=== PATIENT | female | born 1985 ===

== ENCOUNTER 2022-05-04 09:45 | Inpatient (IN) | payer OTHER ==
[~2022-05-04] VITALS: Ht 167.6 cm; Wt 57.4 kg
[2022-05-04] MEDS ORDERED: TOPI100 PO (10:00)
[2022-05-04] MEDS ORDERED: LACO50TA2 PO (10:00)
[2022-05-04 11:45] LABS: BASOPHILS ABSOLUTE AUTO 0.03 K/mm3 (0.00-0.23); BASOPHILS PERCENT AUTO 1 % (0-2); EOSINOPHILS ABSOLUTE AUTO 0.06 K/mm3 (0.00-0.68); EOSINOPHILS PERCENT AUTO 2 % (0-6); Hematocrit 36.5 % (33.0-51.0); Hemoglobin 12.1 g/dL (11.5-16.0); IMMATURE GRAN ABSOLUTE AUTO 0.01 K/mm3 (0.00-0.10); IMMATURE GRAN PERCENT AUTO 0 % (0-1); LYMPHOCYTES ABSOLUTE AUTO 0.51 K/mm3 (0.84-5.20); LYMPHOCYTES PERCENT AUTO 16 % (21-46); MONOCYTES ABSOLUTE AUTO 0.25 K/mm3 (0.16-1.47); MONOCYTES PERCENT AUTO 8 % (4-13); Mean Corpuscular HGB 32.7 pg (26.0-34.0); Mean Corpuscular HGB Conc 33.2 g/dL (31.5-36.5); Mean Corpuscular Volume 99 fL (80-100); Mean Platelet Volume 10.3 fL (9.1-12.4); NEUTROPHILS ABSOLUTE AUTO 2.29 K/mm3 (1.96-9.15); NEUTROPHILS PERCENT AUTO 73 % (41-73); Platelet Count 164 K/mm3 (150-400); RDW Coefficient Variation 14.1 % (11.7-14.2); RDW Standard Deviation 51.5 fL (35.1-46.3); White Blood Cell Count 3.15 K/mm3 (4.00-11.30)
[2022-05-04 12:05] LABS: Magnesium, Blood 2.1 mg/dL (1.6-2.4)
[2022-05-04 12:09] LABS: Alanine Aminotransfer (ALT/SGP 128 U/L (12-78); Albumin, Blood 4.2 g/dL (3.4-5.0); Albumin/Globulin Ratio 1.4 (0.8-1.8); Alk Phos 69 U/L (50-136); Anion Gap 6 mmol/L (6-16); Aspartate Aminotrans (AST/SGOT 126 U/L (12-37); Bilirubin, Total 1.2 mg/dL (0.1-1.0); Blood Urea Nitrogen 11 mg/dL (8-24); Bun/Creatinine Ratio 19.1 (12.0-20.0); CO2, Blood 21 mmol/L (21-32); Calcium, Blood 9.2 mg/dL (8.5-10.1); Chloride, Blood 115 mmol/L (98-108); Creatinine, Blood 0.58 mg/dL (0.40-1.00); Ethanol (Alcohol), Blood, Med <3 mg/dL; Glomerular Filtration Rate 121 (60-); Glucose, Blood 89 mg/dL (70-99); Potassium, Blood 3.7 mmol/L (3.5-5.5); Sodium, Blood 142 mmol/L (136-145); Total Protein, Blood 7.2 g/dL (6.4-8.2)
[2022-05-04 13:51] LABS: U Benzodiazapine Screen DETECTED; U Cannabinoids Screen DETECTED
[2022-05-04 13:52] LABS: U Amphetamine Screen Not Detected; U Barbituate Screen Not Detected; U Buprenorphine Screen Not Detected; U Cocaine Screen Not Detected; U Methadone Screen Not Detected; U Methamphetamine Screen Not Detected; U Opiates Screen Not Detected; U Oxycodone Screen Not Detected; U Phencyclidine Screen Not Detected; U Propoxyphene Screen Not Detected
--- NOTE | 2022-05-04 18:43 | NUR ---
SHIFT SUMMARY PT ARRIVED ON THE FLOOR AT 1800. A VERY PLEASANT LADY. AXO 4. SHAKING, HEADACHE, NAUSEA, AND SOME DIZZINESS. MEDICATED PER OCT. SHE IS STANDBY ASSIST TO BATHROOM FOR STABILITY REASONS. CALM AND COOPERATIVE, VERY INTENT ON GETTING TREATMENT AND GETTING BETTER. BED IN LOWEST POSITION AND CALL LIGHT IN REACH.
--- NOTE | 2022-05-04 20:10 | NUR ---
ASSUMED CARE PATIENT ARRIVED TO ICU ALERT AND ORIENTED X 4. 22G TO RT AC PATENT. PG PLACED IN JANES UPON ARRIVAL. NS INF @ 100ML/HR AND KEPPRA STARTED UPON ARRIVAL. VSS STABLE. PATIENT IS ANSWERING QUESTIONS AND FOLLOWING COMMANDS. CIWA ON ARRIVAL WAS 22. LIBRIUM 50MG PO GIVEN WITH NIGHTIME MEDICATIONS. PATIENT C/O HEADACHE AND BODYACHES, MEDICATED WITH TYLENOL 650MG PO AND WARM BLANKETS PROVIDED. REPORT RECEIVED FROM EZEKIEL SUMMERS.
--- NOTE | 2022-05-04 21:15 | NUR ---
SEIZURE PATIENT WAS RESTING IN BED WHEN SHE BEGAN CONVULSING. PATIENT WAS IMMEDIATELY PLACED ON HIGH LT SIDE LYING POSITION AND SUCTIONED. VALIUM 10MG IV ADMINISTERED AND CONVULSING SUBSIDED. PATIENT WAS IN CLONIC STATE FOR APPROXIMATELY 3 MINUTES, ANSWERING QUESTIONS WITH HEAD NODS AND TRYING TO SPEAK. FOLLOWS COMMANDS. VITAL SIGNS STABLE.
--- NOTE | 2022-05-04 22:55 | NUR ---
AFTER HOSPICE PATIENT CARE SECRETARY, PT TOLD ME THAT SHE DRINKS 4L OF WINE DAILY AND THAT SHE WAS DRINKING IN THE BACK SEAT WHILE HER PARENTS WERE DRIVING HER TO [facility]. PT TOLD ME THAT SHE'S BEEN TAKING KEPPRA AND VIMPAT FOR HER SEIZURE DISORDER THAT SHE'S HAD SINCE SHE WAS 30 YRS OLD. SHE STATES THAT [facility] DID NOT GIVE HER HER KEPPRA OR VIMPAT SINCE SHE'S BEEN THERE.
[2022-05-05 04:00] LABS: BASOPHILS ABSOLUTE AUTO 0.04 K/mm3 (0.00-0.23); BASOPHILS PERCENT AUTO 1 % (0-2); EOSINOPHILS ABSOLUTE AUTO 0.11 K/mm3 (0.00-0.68); EOSINOPHILS PERCENT AUTO 3 % (0-6); Hematocrit 32.2 % (33.0-51.0); Hemoglobin 10.7 g/dL (11.5-16.0); IMMATURE GRAN ABSOLUTE AUTO 0.01 K/mm3 (0.00-0.10); IMMATURE GRAN PERCENT AUTO 0 % (0-1); LYMPHOCYTES ABSOLUTE AUTO 0.72 K/mm3 (0.84-5.20); LYMPHOCYTES PERCENT AUTO 21 % (21-46); MONOCYTES ABSOLUTE AUTO 0.31 K/mm3 (0.16-1.47); MONOCYTES PERCENT AUTO 9 % (4-13); Mean Corpuscular HGB 32.9 pg (26.0-34.0); Mean Corpuscular HGB Conc 33.2 g/dL (31.5-36.5); Mean Corpuscular Volume 99 fL (80-100); Mean Platelet Volume 10.3 fL (9.1-12.4); NEUTROPHILS ABSOLUTE AUTO 2.31 K/mm3 (1.96-9.15); NEUTROPHILS PERCENT AUTO 66 % (41-73); Platelet Count 173 K/mm3 (150-400); RDW Coefficient Variation 14.3 % (11.7-14.2); RDW Standard Deviation 52.2 fL (35.1-46.3); Red Blood Cell Count 3.25 M/mm3 (3.80-5.20)
[2022-05-05 04:10] LABS: Bun/Creatinine Ratio 14.6 (12.0-20.0); Calcium, Blood 8.2 mg/dL (8.5-10.1); Creatinine, Blood 0.62 mg/dL (0.40-1.00); Potassium, Blood 3.3 mmol/L (3.5-5.5)
--- NOTE | 2022-05-05 06:28 | NUR ---
SHIFT SUMMARY PATIENT HAD MULTIPLE SEIZURES DURING SHIFT. ATIVAN, VERSED, AND VALIUM GIVEN FOR SEIZURE EPISODES. CALL MADE TO DR. CHAN AND ORDERS RECEIVED FOR DILANTIN-BUT PATIENT STATES ALLERGY TO MEDICATION. ALLERGY ADDED TO CHART AND NEW ORDER FOR ONE TIME DOSE OF PHENOBARBITAL IV GIVEN. PATIENT URINATED ONCE WITH TOTAL OF 1000ML OUT. MORNING LABS SHOWED LOW POTASSIUM OF 3.3. KCL 40MEQ CURRENTLY INF WITH NS @ 100ML/HR. AFTER THIS BAG OF FLUIDS FINISHES THEN NO FURTHER MAINTENANCE FLUIDS ORDERED. PATIENT REQUESTS THIS MORNING THAT MOTHER, SLIME CHEN, AND FATHER, NADINE CHEN, RECEIVE NO INFORMATION AND NO INFORMATION TO BE GIVEN TO [facility]. LIST UPDATED. VSS T/O SHIFT. NO OTHER EVENTS DURING THE NIGHT.
--- NOTE | 2022-05-05 07:43 | NUR ---
ASSUMED CARE: PT HAVING SEIZURE UPON ARRIVAL. NIGHT RN AT BEDSIDE ADMINISTERING ATIVAN AND VALIUM. NIGHT RN STATES THAT PT'S SEIZURE LASTED 3 MINUTES. TREMULOUS THROUGHOUT. NIGHT RN STATES TONIC CLONIC AT THE START OF SEIZURE. PT'S SEIZING SUBSIDED AND ROUGHLY 10 MINUTES LATER PT'S EYES WERE OPEN AND SHE WAS NODDING TO YES/NO QUESTIONS BUT HAD DIFFICULTY SPEAKING. BY 0740 PT IS ABLE TO CARRY CONVERSATION WITH STAFF AND SPEAKING CLEARLY BUT SLOWLY. C/O W/D SYMPTOMS. MEDICATED WITH LIBRIUM, SWALLOWED SAFELY AND WITHOUT DIFFICULTY. CALL LIGHT IN REACH, VSS AT THIS TIME. DENIES FURTHER CONCERNS.
--- NOTE | 2022-05-05 09:11 | NUR ---
PT STATED SHE WAS HAVING SEIZURE AURA, "FEELING FUNKY" WHICH USUALLY HAPPENS 30 MINUTES BEFORE A SEIZURE. CALL TO DR RUTLEDGE WHO CAME TO SEE PT. MEDICATION CHANGES MADE. A FEW MINUTES AFTER LEFT PT STATED SHE FELT LIKE SHE WAS GOING TO HAVE A SEIZURE AND BEGAN SEIZING, FULL BODY SPASMS WITH ARMS CROSSED AT CHEST AND FOAMING AT MOUTH. ATTEMPTED TO SUCTION BUT JAW CLENCHED TIGHT. VALIUM GIVEN FIRST WITH NO RELIEF, SEIZING WORSENED. 2MG ATIVAN GIVEN WITH RELIEF. SEIZURE LASTED 4 MINUTES, 45 SECONDS.
--- NOTE | 2022-05-05 10:43 | NUR ---
NURSING STAFF LOOKED IN ROOM AND NOTICED PT SEIZING. 2MG ATIVAN GIVEN WITH SEIZURE NOT CEASING. MANAGER OF REGULATORY AFFAIRS AT BEDSIDE AND INSTRUCTED FOR 2MG VERSED TO BE GIVEN. CALL TO DR RUTLEDGE WHO STATED HE WOULD REVIEW CHART TO DECIDE IF VERSED WILL BE A PRN ORDER. PT AWAKE, DIFFICULTY SPEAKING BUT RESPONDING TO STAFF WITH NODDING TO YES/NO QUESTIONS.
--- NOTE | 2022-05-05 12:10 | NUR ---
CALL TO DR RUTLEDGE DUE TO PT HAVING 8 MINUTE SEIZURE, REQUIRING 8MG OF ATIVAN TO RELIEVE SYMPTOMS. ADDED VERSED FOR PRN USE WITH SEIZURES. PAPER GLUING OPERATOR AWARE.
--- NOTE | 2022-05-05 13:14 | NUR ---
PT CALLED STAFF TO BEDSIDE STATING SHE FELT LIKE SHE WAS GOING TO HAVE A SEIZURE. SEIZURE STARTED AN HOUR AFTER THE LAST. SEIZURE LASTED FOR 14 MINUTES AND 20 SECONDS WITH 6MG VERSED ADMINISTERED. DR RUTLEDGE WAS CONTACTED AND DISCUSSED POSSIBLILITY OF INCLUDING NEUROLOGY AND PROFESSOR OF PSYCHIATRY. DR RUTLEDGE STATES HE WILL REVIEW HER CASE TO DETERMINE FURTHER ORDERS.
--- NOTE | 2022-05-05 13:30 | NUR ---
DR RUTLEDGE CALLED WITH PLAN TO START PHENOBARBITOL GTT AND PRN ATIVAN FOR SEIZURES. LET DR KNOW THAT PT HAS 9MG PRN ATIVAN LEFT BEFORE MEETING THE [address] STATES OK AND TO GIVE ATIVAN IF NEEDED. JUNIOR PHP DEVELOPER AWARE.
--- NOTE | 2022-05-05 15:29 | NUR ---
CT CALLED TO DISCUSS NEW ORDER. DUE TO PT'S UNPREDICTABLE SEIZURE STATUS, DISCUSSED WITH LICENSED VOCATIONAL NURSE AND DECIDED TO DO CT AFTER NEXT SEIZURE WHILE PT IS IN POSTICTAL STATE. CALL TO CT TO MAKE THEM AWARE AND THEY ARE AGREEABLE TO THIS PLAN. PT'S CIWA IS CURRENTLY 19 AND PT IS MORE CONFUSED THAN SHE HAS BEEN. SHE KEEPS LOOKING AT THIS RN AND SAYING "YOU HAVE BEEN THROUGH HARDER TIMES THAN I HAVE" AND "YOU'VE GONE THROUGH MORE THAN ME AND CAME OUT STRONGER." BED ALARM ON. PHENOBARB GTT RUNNING PER ORDERS
--- NOTE | 2022-05-05 15:51 | NUR ---
DR RUTLEDGE CALLED TO CHECK ON PT. AWARE THAT PHENOBARBITOL GTT IS RUNNING AND PT IS RESTING AT THIS TIME, 2 HOURS OUT FROM LAST SEIZURE. DR AWARE THAT CT IS DELAYED UNTIL NEXT SEIZURE IN ORDER TO HAVE BETTER TIMING AND ACCURACY OF SCAN. VSS AT THIS TIME.
--- NOTE | 2022-05-05 18:19 | NUR ---
SHIFT SUMMARY: PT HAS HAD FREQUENT SEIZURES THIS SHIFT AND MEDICATED HEAVILY FOR THIS. LONGEST SEIZURE WAS 14 MINUTES 20 SECONDS. PT IS ABLE TO PROTECT AIRWAY DURING SEIZURES WITH SATURATIONS IN HIGH 90S. NSR IN 60S ON TELE WITH QT INTERVAL AT 434. CURRENTLY ON PHENOBARBITOL DRIP. LAST SEIZURE WAS AT 1355. CT SCAN COMPLETED. PT ASKING IF SHE CAN EAT BUT DUE TO SOMNOLENCE AND FALLING BACK TO SLEEP FREQUENTLY, SHE IS NPO AT THIS TIME. BED ALARM ON.
[2022-05-06 05:18] LABS: BASOPHILS ABSOLUTE AUTO 0.04 K/mm3 (0.00-0.23); BASOPHILS PERCENT AUTO 1 % (0-2); EOSINOPHILS ABSOLUTE AUTO 0.08 K/mm3 (0.00-0.68); EOSINOPHILS PERCENT AUTO 2 % (0-6); Hematocrit 35.7 % (33.0-51.0); Hemoglobin 12.4 g/dL (11.5-16.0); IMMATURE GRAN ABSOLUTE AUTO 0.01 K/mm3 (0.00-0.10); IMMATURE GRAN PERCENT AUTO 0 % (0-1); LYMPHOCYTES ABSOLUTE AUTO 0.63 K/mm3 (0.84-5.20); LYMPHOCYTES PERCENT AUTO 17 % (21-46); MONOCYTES ABSOLUTE AUTO 0.36 K/mm3 (0.16-1.47); MONOCYTES PERCENT AUTO 10 % (4-13); Mean Corpuscular HGB 33.4 pg (26.0-34.0); Mean Corpuscular HGB Conc 34.7 g/dL (31.5-36.5); Mean Corpuscular Volume 96 fL (80-100); Mean Platelet Volume 10.3 fL (9.1-12.4); NEUTROPHILS ABSOLUTE AUTO 2.63 K/mm3 (1.96-9.15); NEUTROPHILS PERCENT AUTO 70 % (41-73); Platelet Count 216 K/mm3 (150-400); RDW Coefficient Variation 13.8 % (11.7-14.2); RDW Standard Deviation 49.6 fL (35.1-46.3); Red Blood Cell Count 3.71 M/mm3 (3.80-5.20); White Blood Cell Count 3.75 K/mm3 (4.00-11.30)
[2022-05-06 05:26] LABS: Albumin, Blood 4.2 g/dL (3.4-5.0); Albumin/Globulin Ratio 1.2 (0.8-1.8); Bilirubin, Total 0.9 mg/dL (0.1-1.0); Bun/Creatinine Ratio 12.5 (12.0-20.0); Calcium, Blood 9.1 mg/dL (8.5-10.1); Creatinine, Blood 0.56 mg/dL (0.40-1.00); Globulin, Blood 3.4 g/dL (2.2-4.0); Potassium, Blood 3.1 mmol/L (3.5-5.5); Total Protein, Blood 7.6 g/dL (6.4-8.2)
--- NOTE | 2022-05-06 06:51 | NUR ---
PT RESTED QUIETLY THROUGHOUT SHIFT, NO SEIZURE ACTIVITY NOTED THROUGHOUT NOC. CIWA'S RANGE BETWEEN 6 AND 17 THIS SHIFT, WHEN PT AWAKE AND UP AT BEDSIDE, CIWA IS HIGH TEENS, AT REST/SLEEP FOR SCORES LESS THAN 10 AT WHICH TIME PT DENIES N/V, HEADACHE, ANXIETY HOWEVER REMAINS DISORIENTED TO LOCATION. SHE IS INTERMITTENTLY AWARE THAT SHE IS IN A HOSPITAL HOWEVER REMAINS VERBALLY REDIRECTABLE THROUGHOUT NOC. MARKED TREMORS ARE NOTED WITH UP OOB THIS AM, HOWEVER PT DENIES ANXIETY OTHER THAN NEED TO VOID. 1 PERSON ASSIST TO BSC AND TOLERATED WELL. ASSESSMENT OTHERWISE REMAINS UNCHANGED THROUGHOUT NOC.
--- NOTE | 2022-05-06 07:36 | NUR ---
ASSUMED CARE: PT RESTING QUIETLY IN BED AT THIS TIME. SINUS TACH AT 108. 99% ON RA. PHENOBARB GTT PER ORDERS. CIWA SCORE CURRENTLY 6 WHILE PT IS RESTING. BED ALARM ON AT THIS TIME. NO ACUTE NEEDS OR CONCERNS.
--- NOTE | 2022-05-06 08:58 | NUR ---
DR RUTLEDGE CAME TO SEE PT AND INSTRUCTS TO WEAN PHENOBARB GTT DOWN TO NEW RATE. HIS PLAN IS TO GRADUALLY WEAN OFF AND START ORAL MEDICATION WHEN PT IS ABLE TO TAKE IT. IS AWARE PT WAS UNABLE TO TAKE ORAL MEDS THIS AM DUE TO SOMNOLENCE. PHARMACY ASKED ABOUT EEG PLANS WITH PHENOBARB AND STATES CONTINUOUS EEG SO HE IS PLANNING TO WEAN OFF. COMPUTER SYSTEMS SOFTWARE ENGINEER AWARE OF PLANS.
--- NOTE | 2022-05-06 13:30 | NUR ---
STAFF OUTSIDE OF ROOM HEARD A "THUD" AND FOUND PT ON THE FLOOR. BY THE TIME STAFF ENTERED ROOM, BED ALARM WAS ALERTING. LIFT SHEET WAS PLACED UNDER PT. SHE WAS VERY SOMNOLENT WITH CHORDS WRAPPED AROUND HER BODY IF SHE HAD ROLLED OVER THE SIDERAIL AND SEIZURE PAD ON THE BED. PT LIFTED BACK TO BED, VSS. PT SOMNOLENT AND WHEN HAND WAS DROPPED OVER HER FACE IT HIT HER AND THEN SHE FLINCHED. SHE WAS MOVING ALL EXTREMETIES WITH PILL ROLLING ACTIVITY TO LEFT THUMB AND FOREFINGER. PT WAS ABLE TO STATE NAME AND DATE OF SLOWLY. SPEECH SLURRED. THIS IS THE MOST INTERACTIVE PT HAS BEEN ALL SHIFT DUE TO PHENOBARB GTT FOR SEIZURES AND ETOH W/D. CALL TO DR RUTLEDGE WHO INSTRUCTED TO REDUCE PHENOBARB RATE. CALL TO NURSING LOGISTICS TECH TO PUT PT ON CAMERA. ATTEMPTED TO CHANGE SENSITIVITY TO BED ALARM TO LOWEST SETTING BUT THAT WOULD ALARM WHENEVER PT MOVED. PT DOES NOT APPEAR TO HAVE ANY VISIBLE INJURY OR ACUTE NEEDS AT THIS TIME.
--- NOTE | 2022-05-06 14:34 | NUR ---
RN LOOKED INTO ROOM AND NOTICED PT HAD CROSSED ARMS, MOVING IN RHYTHMIC MANNER AND TOES WERE POINTED. PT ALSO SEEMED TO BE FOAMING AT MOUTH. MANUFACTURING ACCOUNTANT WENT INTO ROOM AND PT CONTINUED MOVING ARMS. MANUFACTURING ACCOUNTANT HELD PT'S WRIST AND RHYTHMIC MOVEMENTS STOPPED. ARMS WERE STIFF AND RESISTANT TO BEING PULLED ON. EPISODE LASTED LESS THAN A MINUTE. CALL TO DR RUTLEDGE TO SEE IF PT SHOULD BE TRANSFERRED SOMEWHERE FOR CONTINUOUS EEG. STATES HE IS CALLING DR CALLE TO GET HIS INPUT.
--- NOTE | 2022-05-06 16:24 | NUR ---
DR RUTLEDGE CALLED BACK AFTER SPEAKING WITH DR CALLE. DECLINES TRANSFERRING FOR CONTINUOUS EEG AT THIS TIME. DR'S PLAN IS TO CONTINUE REDUCING RATE OF PHENOBARBITOL, STOP KEPPRA AND KEEP TOPIMAX. DR REQUESTED THAT THIS RN GET MEDICAL RECORDS FROM [facility]. CALL TO [facility] AND REQUESTED THIS INFORMATION, AWAITING RECIEPT OF RECORDS.
--- NOTE | 2022-05-06 18:05 | NUR ---
SHIFT SUMMARY: RECORDS CAME FROM [facility]. CALL TO DR RUTLEDGE TO DISCUSS. PHENOBARB TITRATED DOWN TO STOP IN AN HOUR. LIBRIUM FOR CIWA PROTOCOLS. PT RESTING QUIETLY. NSR IN 80S ON TELE. VSS. NO ACUTE NEEDS OR CONCERNS.
--- NOTE | 2022-05-06 19:15 | NUR ---
ASSUMED CARE OF PT, BEDSIDE REPORT RECEIVED. PT IS RESTING QUIETLY WHEN UNDISTURBED, DOES ROUSE TO VERBAL STIMULI, SHE IS SLOW TO RESPOND AND SPEECH IS SLURRED. SHE STATES THAT SHE IS AT HOME AND THAT SHE DOES NOT KNOW THE MONTH OR YEAR. SHE REQUESTS TO HAVE HER MOM "DOOR DASH SOME TACO PLASCENCIA" AND VERBALIZES FRUSTRATION WITH OFFERED SANDWICH, PUDDING OR YOGURT INSTEAD OF TACO PLASCENCIA. BED ALARM IS CONFIRMED ARMED, WILL DISCUSS ALCOHOL WITHDRAWAL ORDERS WITH HOSPITALIST DAIRY HAND AND MONITOR CIWA SCORES.
[2022-05-07 06:10] LABS: Source, Urine Foley catheter
[2022-05-07 06:13] LABS: Bilirubin, Urine Neg (Neg); Blood, Urine Neg (Neg); Glucose Qualitative, Urine Neg (Neg); Ketones, Urine 2+ (Neg); Leukocyte Esterase, Urine Neg (Neg); Nitrite, Urine Neg (Neg); Protein, Urine Neg (Neg); Urobilinogen, Urine NORM (Normal)
[2022-05-07 06:15] LABS: Appearance, Urine Clear (Clear); Color, Urine Yellow (P-Yellow)
--- NOTE | 2022-05-07 06:19 | NUR ---
PT RESTS QUIETLY THIS SHIFT, MENTATION IS NOTED TO BE CLEARING NOC PROGRESSES. SHE DOES CONTINUE TO BE UNABLE TO STATE THAT SHE IS IN THE HOSPITAL FOR ALCOHOL WITHDRAWAL OF 0400 ASSESSMENT HOWEVER WITH UP TO BSC THIS AM AT 0500 FOR ATTEMPT TO VOID, SHE IS ABLE TO RETAIN THIS INFORMATION FOR DURATION OF CONVERSATION LASTING APPROXIMATELY 1 HOUR. GAIT IS NOTED TO CONTINUE TO BE UNSTEADY WITH 1 PERSON ASSIST TO BSC HOWEVER SHE DOES HAVE IMPROVED BALANCE AND STRENGTH. SHE EXPRESSES CONCERN REGARDING ALCOHOL WITHDRAWAL TREATMENT FACILITY THAT SHE DOESN'T WANT TO LOSE HER BAD AT BUT DENIES THAT THIS IS [facility] AND IS UNABLE TO TELL THIS RN WHAT THE NAME OF SAID FACILITY IS. SHE HAS BEEN UNABLE TO VOID THIS SHIFT HOWEVER REPORTED FEELING NEED TO VOID THIS AM, LOVE CATH PLACED FOR URINARY RETENTION WITH 600 ML CLEAR DARK YELLOW URINE IMMEDIATELY DRAINED. CIWA SCORES ARE LOW TO MID TEENS THROUGHOUT SHIFT.
--- NOTE | 2022-05-07 09:32 | NUR ---
ASSUMED CARE REPORT FROM [facility] AT 0700. PT SLEEPING, WAKES c PAINFUL STIMULI. SLOW TO RESPOND, SLURRED SPEECH. ORIENTED TO SELF, KNOWS SHE IN HOSPITAL, UNSURE OF CITY OR DATE. ABLE TO RECALL MOTHER'S PHONE NUMBER AND SPEAK c HER ON PHONE. CIWA 11. NO HALLUCINATIONS NOTED. PT ABLE TO FEED HERSELF BREAKFAST, TAKES PILLS s DIFFICULTY. LUNGS CLEAR. VSS. REPOSITIONS SELF IN BED INDEPENDENTLY. BED ALARM AND ON CAMERA FOR FALL RISK. PT STATUS CHANGED TO BURLESQUICEOUS TELE. WILL CONTINUE TO MONITOR.
--- NOTE | 2022-05-07 16:08 | NUR ---
SHIFT SUMMARY PT A&O X 2. FOLLOWS DIRECTIONS. REORIENTS EASILY, SLOW TO RESPOND. RESPONSIVENESS AND MOOD HAD WAXED AND WANED THIS SHIFT. OCCASIONALLY PARANOID OR DEMANDING BUT REDIRECTABLE. OTHER TIMES INTERACTIVE AND INVOLVED IN CARE. MAEW. MONACO. CIWA <10 THIS SHIFT. NO ETOH MEDS GIVEN. NO INCREASE IN CIWA NOTED. TOLERATING MEALS WELL, MEDICATED FOR NAUSEA ONCE, NO EMESIS. LOVE REMOVED PER PT REQUEST THIS SHIFT. 1300 ML CLEAR YELLOW URINE OUT. PT UP TO SHOWER IN CHAIR. ONE PERSON ASSIST BACK TO BED, UPON RETURNING TO ROOM, PT c RHYTHMIC JERKING TO UPPER EXT, PURSED LIPS, EYES CLOSED TIGHT, SLIGHT GRIMACE TO PAINFUL STIMULI, EPISODE LASTED <30 SEC WHEN PT WAS THEN LETHARGIC BUT MAKING EYE CONTACT AND MOANING. VSS, NO INCREASE IN HR, DECREASE IN O2 SATS, LOSS OF BLADDER DURING EPISODE. PT HAD ART MISHRA 15 MINS p EPISODE. ABLE TO COMPLETE FULL ASSESSMENT. FAXED FOR RECORDS FROM [facility] IN [place] PER PT REQUEST. WILL CONTINUE TO MONITOR UNTIL REPORT TO ONCOMING NURSE.
--- NOTE | 2022-05-07 19:08 | NUR ---
REPORT TO MEDICAL RN REPORT GIVEN AT 1900. PT TO BE TRANSFERRED BY NOC SHIFT.
--- NOTE | 2022-05-07 19:48 | NUR ---
PATIENT TRANSFERRED TO ROOM 344 AT APPROX 1945
[2022-05-07] MEDS ORDERED: LORA1 PO (22:16)
[2022-05-07] MEDS ORDERED: PREGABALIN PO (22:17)
[2022-05-07] MEDS ORDERED: REMERON15 M9 PO (22:17)
[2022-05-07] MEDS ORDERED: ESCI20 PO (22:18)
[2022-05-07] MEDS ORDERED: Naltrexone HCl50 MG PO (22:20)
[2022-05-07] MEDS ORDERED: TRAZ50 PO (22:20)
[2022-05-07] MEDS ORDERED: NEURONTIN300 MG PO (22:21)
[2022-05-07] MEDS ORDERED: Chlordiazepoxid25 MG PO (22:21)
--- NOTE | 2022-05-08 01:01 | NUR ---
NURSE NOTE PATIENT FELL OUT OF BED WHILE SEIZING. PATIENT WAS REASSESSED FOR INJURIES. NO INJURIES NOTED. PATIENT HAS BEEN HAVING SEIZURES. [address]ST[address] JACKSON WAS NOTIFIED. ADDITIONAL ORDERS WERE GIVEN. PATIENT HAS BEEN RESTING COMFORTABLY SINCE.
--- NOTE | 2022-05-08 01:16 | NUR ---
NURSE NOTE PATIENT HAS BEEN HAVING SEIZURES. NOTIFIED. OBTAINED AND FOLLOWED ADDITIONAL ORDERS.
--- NOTE | 2022-05-08 05:29 | NUR ---
SHIFT SUMMARY PATIENT WAS A TRANSFER FROM ICU. PATIENT HAS A HX OF SEIZURES. PATIENT HAS HAD SEVERAL SEIZURES. PATIENTS LONGEST SEIZURE WAS 16 MIN. OBTAINED ADDITIONAL ORDERS FOR SEIZURES. PATIENT WAS UNABLE TO TAKE NIGHT MEDICATIONS DUE TO SEIZURE ACTIVITY. PATIENT HAS BEEN RESTING COMFORTABLY SINCE MEDICATIONS. PATIENT HAS NOT COMPLAINED OF PAIN, NAUSEA, SOB OR VOMITTING THIS SHIFT. BED IN LOCKED AND LOWEST POSITION. SEIZURE PADS ARE IN PLACE AND SEIZURE PRECAUTIONS ARE IN PLACE. WILL MONITOR UNTIL SHIFT CHANGE.
--- NOTE | 2022-05-08 08:57 | NUR ---
PT REFUSING TO URINATE DUE TO NEEDING SUPERVISION. SHE FELL TWICE LAST NIGHT AND IS UNSAFE TO BE LEFT UNATTENDED WHEN UP DUE TO PSEUDOSEIZURES. PT EXPRESSED THAT SHE WOULD LIKE TO LEAVE AND GO TO A HOTEL. RN'S AND STAFF HAVE WORKED WITH PT TO PROVIDE ALTERNATIVES SO THAT SHE CAN URINATE SAFELY. PT REFUSES THESE ALTERNATIVES. PT IS NON-ADHERENT TO MEDICAL ADVICE AND SAFETY PROTOCOLS.
[2022-05-08] MEDS ORDERED: POTCHL20ER PO (11:06)
--- NOTE | 2022-05-08 13:40 | NUR ---
PT AGREEABLE TO FOLLOW UP WITH PCP AND NEUROLOGIST. PT ALSO TO TRY TO FIND A REHAB FACILITY. PARENTS HELPING TO ARRANGE CARE. NEW MEDICATIONS FAXED TO [facility] IN [place]. PT UNSTEADY ON HER FEET, WHICH IS HER BASELINE. DC'D HOME WITH PARENTS.
--- NOTE | 2022-05-08 13:51 | NUR ---
PT BECAME ANGRY AT PARENTS AND THREW HERSELF OUT OF BED AND ONTO THE GROUND. VSS. NO INJURIES. PT DC'D HOME.
== END 2022-05-08 13:45 | disposition home or self-care (01) | DRG 101 ==
LOC: ER 09:45 → ERHOLD 09:46 → ICUE 09:46 → MEDS 17:58 → ICUE 20:07 → MEDS 05-07 19:37
PROVIDERS: Internal Medicine; Physician Assistant; ADMIT Internal Medicine
DX: R56.9 Unspecified convulsions (principal); F10.239 Alcohol dependence with withdrawal, unspecified; F60.9 Personality disorder, unspecified; M79.7 Fibromyalgia; F10.20 Alcohol dependence, uncomplicated; Z88.1 Allergy status to other antibiotic agents; Z79.899 Other long term (current) drug therapy; Z88.2 Allergy status to sulfonamides; Z66 Do not resuscitate
CPT/HCPCS: 70450; 80048; 80053; 81003; 82607; 82746; 82947; 83735; 84146; 85025; 93005; 93010; 96361; 96365; 96366; 96375; 96376; 99285-25; A9270; C1751; C9254; G0378; G0480; J1650; J1953; J2060; J2250; J2405; J2560; J3010; J3360; J3411; J3480; J7030; J7050